=== PATIENT | male | born 1970 | race African-American/Black ===

== ENCOUNTER → 2020-02-03 | Outpatient (CLI) | payer BC ==
--- NOTE | 2020-02-03 13:50 | Diagnostic Imaging Report ---
Left knee MRI without contrast. History: Knee pain. Meniscus tear. Injury. Decreased range of motion. Swelling. Comparison: None. Technique: Multiplanar multi-sequence MRI of the knee without contrast. Findings: Medial compartment: Complex tear involving the posterior horn and body segments of the medial meniscus. Articular cartilage fraying and fissuring in the medial compartment. Mild underlying bone marrow edema at the medial femoral condyle and medial tibial plateau could be due to a bone contusion. No cortical fracture is seen. Peripheral marginal osteophytes. Mild sprain of the medial collateral ligament. The majority of the fibers are intact. Lateral compartment: No meniscal tear or cartilage abnormality. The LCL complex is normal. Intercondylar notch: The ACL and PCL are intact. Patellofemoral compartment: Articular cartilage fraying and fissuring in the patellofemoral compartment. Extensor mechanism: Chronic appearing scarring and degeneration of the patellar tendon with bone spurring at the inferior patellar bone. The quadriceps and patellar tendons are otherwise intact. Other findings: There is a moderate-sized joint effusion and synovitis. There is no acute fracture, subluxation or avascular necrosis. IMPRESSION: Complex medial meniscus tear and mild sprain of the medial collateral ligament. Bone marrow edema at the medial femoral condyle and medial tibial plateau could be due to a bone contusion. No cortical fracture is seen. Moderate size joint effusion and synovitis. Chronic appearing scarring and degeneration of the patellar tendon with bone spurring at the inferior patellar bone. Signed by: Dr. Jacob Bowman M.D. on 02/03/2020 1:46 PM
== END ==
LOC: MRI 12:50
PROVIDERS: ATTEND Specialist
DX: S83.222A Peripheral tear of medial meniscus, current injury, left knee, initial encounter (principal); S83.262A Peripheral tear of lateral meniscus, current injury, left knee, initial encounter

== ENCOUNTER → 2020-04-06 | Day surgery (SDC) | payer BC ==
[2020-04-01 11:59] LABS: BASOPHILS % 0.6 % (0.0-1.0); EOSINOPHILS # (AUTO) 0.3 (0.0-0.4); EOSINOPHILS % 5.5 % (0.0-6.0); HEMATOCRIT 47.4 % (38.2-49.6); HEMOGLOBIN 15.7 g/dL (14.0-18.0); LYMPHOCYTES # (AUTO) 2.5 (1.0-3.2); LYMPHOCYTES % 46.6 % (18.0-39.1); MEAN CORPUSCULAR HEMOGLOBIN 27.5 pg (28-32); MEAN CORPUSCULAR HGB CONC 33.1 g/dL (31-35); MEAN CORPUSCULAR VOLUME 83.2 fL (81-99); MONOCYTES # (AUTO) 0.4 (0.2-0.8); MONOCYTES % 7.9 % (4.4-11.3); NEUTROPHILS # (AUTO) 2.1 (2.1-6.9); NEUTROPHILS % 39.2 % (38.7-80.0); PLATELET COUNT 233 x10e3/uL (140-360)
--- NOTE | 2020-04-01 12:19 | Diagnostic Imaging Report ---
EXAMINATION: CHEST 2 VIEWS INDICATION: Pre-operative COMPARISON: None FINDINGS: LINES/TUBES:None LUNGS:The lungs are well-inflated. No focal consolidation or pulmonary edema. PLEURA:No pleural effusion or pneumothorax. MEDIASTINUM:The cardiomediastinal silhouette appears normal in size and shape. BONES/SOFT TISSUES:No acute osseous injury. ABDOMEN:No free air under the diaphragm. IMPRESSION: No focal pneumonia or pulmonary edema. Signed by: Sachi Smith MD on 04/01/2020 12:15 PM
[~2020-04-06] MED LIST: ASPIR 8181 MG PO; BUPIVACAINE 0.5%/EPI 30 ML SDV INJ ONE; CEFAZOLIN SOD 1 GM/NS 50ML 100 ML IV ONE; CLOPIDOGREL75 MG PO; CRESTOR10 MG PO; DEXAMETHASONE SOD PHOS INJ 4 MG/ML VIAL ONE; FENTANYL CITRATE/PF 100MCG/2 ML INJ ONE; GLYCOPYRROLATE INJ 0.2 MG/ML VIAL ONE; KETOROLAC TROMETHAMINE 30 MG/ML VIAL ONE; LIDOCAINE HCL 2% LOCAL INJ 5 ML SDV VIAL INJ ONE; MIDAZOLAM HCL 2 MG/2 ML VIAL ONE; ONDANSETRON HCL INJ 2MG/ML 2ML 2 MG/ML VIAL ONE; PROPOFOL IV EMULSION 10 MG/ML 20 ML VIAL ONE; SEVOFLURANE INHAL SOLN 250 ML PEN BTL ONE
--- OUTSIDE RECORDS SUMMARY | 2020-04-06 06:08 | XMS REPORT ---
Author Last Calderon Organization [employer] Address Unknown Phone Unavailable Care Team Providers Care [employer] Consultant Name Role Phone Eric Ferro CP Unavailable Allergies, Adverse Reactions, Alerts Substance Reaction Event Type N.K.D.A. 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 Medications Medication Code System Code Instructions Start Date End Date Status Dosage Tussionex Pennkinetic [place] [facility] [place] 08458546612 10-8 MG/5ML Oral ly every 12 hrs Jul 11, 2018 Jul 21, 2018 Active 5 ml as needed Omeprazole [facility] [place] 93309623869 40 MG Orally Once a day Jul 08, 2018 Active 1 capsule Aspirin [facility] [place] [address]-43 Active not define d Fenofibrate [facility] [place] [address]-48 Active not de fined Oxycodone HCl ND 77390174611 5 MG/5ML Orally every 6 hrs Jul 11, 2018 Jul 18, 2018 Active 10 ml as needed PredniSONE ND 07824438040 10 MG Orally Twi ce daily x 5 days then Once a day x 5 days Jul 11, 2018 Jul 21, 2018 Active 1 tablet Atorvastatin Calcium [facility] [place] [address]-40 Activ e not defined Plavix [facility] [place] [address]-46 Active not define d Results No Known Results Summary Purpose [employer] Submission
--- OUTSIDE RECORDS SUMMARY | 2020-04-06 06:08 | XMS REPORT ---
Author Last Calderon Organization [employer] Address Unknown Phone Unavailable Care Team Providers Care Grazing Examiner Name Role Phone Eric Ferro CP Unavailable Allergies, Adverse Reactions, Alerts Substance Reaction Event Type N.K.D.A. 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 Assessment Chronic laryngitis (LPRD) J37.0 Ac tive Medications Medication Code System Code Instructions Start Date End Date Status Dosage Plavix [facility] [address]-43 Active not define d Atorvastatin Calcium [facility] NAM[facility] [address]-03 Activ e not defined Fenofibrate [facility] NAMED [facility] [address]-24 Active not de fined Omeprazole [facility] NAMED [facility] 13343446074 40 MG Orally Once a day Jul 08, 2018 Active 1 capsule Aspirin [facility]AM[facility] [address]-80 Active not define d Results No Known Results Summary Purpose [employer] Submission
--- OUTSIDE RECORDS SUMMARY | 2020-04-06 06:08 | XMS REPORT ---
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 [address]-31 Active not define d PredniSONE [facility] 15447925742 10 MG Orally Twi ce daily x 5 days then Once a day x 5 days Jul 23, 2018 Aug 02, 2018 Active 1 tablet Tussionex Pennkinetic ER [facility] 05611287742 10-8 MG/5ML Oral ly every 12 hrs Jul 22, 2018 Aug 01, 2018 Active 5 ml as needed Oxycodone HCl [facility] 22605019870 5 MG/5ML Orally every 6 hrs Jul 22, 2018 Jul 27, 2018 Active 10 ml as needed Fenofibrate [facility] [address]-05 Active not de fined Atorvastatin Calcium [facility] [address]-92 Activ e not defined Plavix [facility] [address]-00 Active not define d Omeprazole [facility] 99625680522 40 MG Orally Once a day Jul 08, 2018 Active 1 capsule Results No Known Results Summary Purpose [employer] Submission
--- OUTSIDE RECORDS SUMMARY | 2020-04-06 06:08 | XMS REPORT | Summary of Care ---
Author Author KALEY STARKEY M.D. Organization Unknown Address [facility] Phone Unavailable Care Team Providers Care Ecommerce Marketing Manager Name Role Phone JAKY Chapa, LUIS Unavailable Unavailable JAKY VOGEL [place], LUIS W Unavailable Unavailable Unavailable Unavailable Functional Status Name Dates Details Functional status health issues are not documented Status: Name Dates Details Cognitive status health issues are not d ocumented Status: Problems Name Dates Details Other internal derangements of left knee (717.89, M23.8X2) Status: Active Medications Name Dates Details Indomethacin 25 MG Oral Capsule TAKE 1 CAPSULE 3 TIMES DAILY WITH FOOD. Quantity: 42 JAKY Chapa, WASYL * Start : 28-Nov-2018 End : 12-Dec-2018 Active Allergies and Adverse Reactions Name Dates Details Allergy history not documented Status: Procedures Procedure Dates Details Knee wo contrast 40646 Date: 28-Nov-2018 Immunization Name Dates Details Immunizations not documented Social History Name Dates Details Unknown if ever smoked Vital Signs Date Test Result Details No Known Vitals to report Results Date Description Value Details Results not documented Plan of Care Name Dates Details Planned Observations Knee wo contrast 54515 On: 28-Nov-2018 Intent Planned Goals not documented Interventions Provided Medication Changes* Indomethacin 25 MG Oral Capsule - Start Plan* I spent >30 minutes with Mr. CRAIG, >50% of that time regarding my impression and Rx plan * We discussed various treatment options, including MRI * MRI L knee * Rx Indocin * RTC after MRI Instructions Name Dates Details Instructions not documented Encounters Appointment; DANIELLE GILBERT M.D. Encounter Diagnosis: Problem not documented On: 29-Jan-2018 8:00 Appointment; LUIS STARKEY M.D. Encounter Diagnosis: Problem not documented On: 28-Nov-2018 15:00
--- OUTSIDE RECORDS SUMMARY | 2020-04-06 06:08 | XMS REPORT ---
Author Author [facility] Organization [facility] Address Unknown Phone Unavailable Care Team Providers Care Salesperson Flying [employer] Name Role Phone UNKNOWN, REFFERING PP Unavailable Dariana PRATT Unavailable Unavailable LUIS STARKEY M.D. Unavailable Unavailable Yajaira LÓPEZ Unavailable Unavailable TRISTIAN SILVA M.D. Unavailable Unavailable DANIELLE GILBERT M.D. 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 Ordering Clinician Indication Dosage Frequency Signature (SIG) Comments Components Indomethacin 25 MG Oral Capsule Indomethacin 25 MG Oral Caps ule 2018-11-28 00:00:00 2018-12-12 23:59:00 No LUIS STARKEY M.D. 1 Q 0.3333D TAKE 1 CAPSULE 3 TIMES DAILY WITH FOOD. Omeprazole Omeprazole 2018-07-08 00:00:00 Yes Eric Kasie 1 capsule Aspirin Aspirin Yes Eric Kasie not defin ed Fenofibrate Fenofibrate Yes Eric Kasie n ot defined Atorvastatin Calcium Atorvastatin Calcium Yes Eric Cord es not defined Plavix Plavix Yes Eric Kasie not defined Procedures and Interventions Procedure Date / Time Performed Performing Clinici an Knee wo contrast [id number] 2018-11-28 00:00:00 Plan of Care Planned Activity Planned Date Comments Encounters Start Date/Time End Date/Time Encounter Type Admission Type Attendi [facility] Care Department Encounter ID 2018-11-28 15:00:00 2018-11-28 15:00:00 Appointment; LUIS STARKEY M.D. FEDORIW, WASYL, M.D. [facility] [id number] 2018-08-13 09:00:00 2018-08-13 09:00:00 Outpatient [facility] [id number] 08:50:00 2018-07-23 08:50:00 Outpatient [facility] [id number] 10:50:00 2018-07-11 10:50:00 Outpatient [facility] P [id number] 14:40:00 2018-02-17 14:40:00 Outpatient C EVARISTO SILVA M.D. [facility] [id number] 2018-01-29 08:00:00 2018-01-29 08:00:00 Appointment; LOUIE GILBERT M.D. CUSICK, MICHAEL, M.D. [facility] [id number] Results Test Description Test Time Test Comments Text Results Atomic Results Result Comments CHEST 2 VIEWS 2020-04-01 12:15:00 [place] [address] Patient Name: KALEY CRAIG MR #: [id number] : 1970 Age/Sex: 49/M Req #: [id number] Adm Physician: Ordered by: ALEXEY PRATT MD Report #: [id number] Location: OR Room/Bed: Procedure: [id number] DX/CHEST 2 VIEWS Exam Date: 04/01/20 Exam Time: 1140 REPORT STATUS: Signed EXAMINATION: CHEST 2 VIEWS INDICATION: Pre-operative COMPARISON: None FINDINGS: LINES/TUBES:None LUNGS:The lungs are well-inflated. No focal consolidation or pulmonary edema. PLEURA:No pleural effusion or pneumothorax. MEDIAS TINUM:The cardiomediastinal silhouette appears normal in size and shape. BONES/SOFT TISSUES:No acute osseous injury. ABDOMEN:No free air under the diaphragm. IMPRESSION: No focal pneumonia or pulmonary edema. Signed by: Philip Vega MD on 04/01/2020 12:15 PM Dictated By: PHILIP VEGA MD 1215 Transcribed By: MARK on 04/01/20 1215 COPY TO: ALEXEY PRATT MD MRI KNEE LEFT WO 2020-02-03 13:38:00 [place] [address] Patient Name: KALEY CRAIG MR #: [id number] : 1970 Age/Sex: 49/M Req #: [id number] Adm Physician: Ordered by: ALEXEY PRATT MD Report #: [id number] Location: MRI Room/Bed: Procedure: [id number] MRI/MRI KNEE LEFT WO Exam Date: Exam Time: REPORT STATUS: Signed Left knee MRI without contrast. History: Knee pain. Meniscus tear. Injury. Decreased range of motion. Swelling. Comparison: None. Technique: Multiplanar multi-sequence MRI of the knee without contrast. Findings: Medial compartment: Complex tear involving the posterior horn and body segments of the medial meniscus. Articular cartilage fraying and fissuring in the medial compartment. Mild underlying bone marrow edema at the medial femoral condyle and medial tibial plateau could be due to a bone contusion. No cortical fracture is seen. Peripheral marginal osteophytes. Mild sprain of the medial collateral ligament. The majority of the fibers are intact. Lateral compartment: No meniscal tear or cartilage abnormality. The LCL complex is normal. Intercondylar notch: The ACL and PCL are intact. Patellofemoral compart ment: Articular cartilage fraying and fissuring in the patellofemoral compartment. Extensor mechanism: Chronic appearing scarring and degeneration of the patellar tendon with bone spurring at the inferior patellar bone. The quadriceps and patellar tendons are otherwise intact. Other findings: There is a moderate-sized joint effusion and synovitis. There is no acute fracture, subluxation or avascular necrosis. IMPRESSION: Complex medial meniscus tear and mild sprain of the medial collateral ligament. Bone marrow edema at the medial femoral condyle and medial tibial plateau could be due to a bone contusion. No cortical fracture is seen. Moderate size joint effusion and synovitis. Chronic appearing scarring and degeneration of the patellar tendon with bone spurring at the inferior patellar bone. Signed by: Dr. Caleb Bowman M.D. on 02/03/2020 1:46 PM Dictated By: CALEB BOWMAN MD, MD 1346 Transcribed By: MARK on 02/03/20 1346 COPY TO: ALEXEY PRATT MD CBC W/MANUAL DIFF 2019-11-25 06:12:00 WHITE BLOOD CELL (test code = WBC) 2.5 x10 3/uL 5.0-12.0 RED BLOOD CELL (test code = RBC) 5.04 x10 6/uL 4.70-6.10 HEMOGLOBIN (test code = HGB) 13.9 g/dL 14.0-18.0 HEMATOCRIT (test code = HCT) 42.6 % 37.0-49.0 MEAN CELL VOLUME (test code = MCV) 85 fL 80-94 MEAN CELL HGB (test code = MCH) 27.6 pg 27-31 MEAN CELL HGB CONCENTRATION (test code = MCHC) 32.6 g/dL 3 3-37 RED CELL DISTRIBUTION WIDTH (test code = RDW) 13.9 % 11 .5-15.5 PLATELET COUNT (test code = PLT) 161 x10 3/uL 130-400 MEAN PLATELET VOLUME (test code = MPV) 9.8 fL 9.4-16.4 TOTAL CELLS COUNTED (test code = TCC) 100 #CELLS SEGMENTED NEUTROPHILS (test code = SEG) 40 % 43-65 BAND NEUTROPHIL (test code = BAND) 14 % 0-1 LYMPHOCYTE (test code = LYMPH) 38 % 20.5-45.5 ATYPICAL LYMPH (test code = ALYMPH) 3 % 0-1 MONOCYTE (test code = MON) 7 % 5.5-11.7 POLYCHROMASIA (test code = POLC) 1+ NONE SEEN TARGET CELLS (test code = TGT) 1+ NONE SEEN TEAR DROP CELLS (test code = TEAR) 1+ NONE SEEN PLATELET ESTIMATE (test code = PLTEST) ADEQUATE ADEQUATE PLATELET MORPHOLOGY (test code = PLTMORPH) NORMAL TONIA L BASIC METABOLIC [id number] 05:53:00* Test Item Value Reference Range Comments SODIUM (test code = NA) 133 mmol/L 137-145 POTASSIUM (test code = K) 3.9 mmol/L 3.4-5.0 CHLORIDE (test code = CL) 104 mmol/L 98-107 CARBON DIOXIDE (test code = CO2) 23 mmol/L 22-30 GLUCOSE (test code = GLU) 96 mg/dL 74-106 BLOOD UREA NITROGEN (test code = BUN) 16 mg/dL 9-20 GLOMERULAR FILTRATION RATE (test code = GFR) 75 >60 The estimated glomerular filtration rate is computed usingpatient race, age (>18), sex, and serum creatinine. If anyof the needed data elements are missing the Laboratory cannot compute an estimation of the glomerular filtration rate. CREATININE (test code = CREAT) 1.1 mg/dL 0.7-1.3 CALCIUM (test code = CA) 7.5 mg/dL 8.4-10.2 [id number] 05:53:00* Test Item Value Reference Range Comments MAGNESIUM (test code = MAG) 1.8 mg/dL 1.6-2.3 CBC W/MANUAL [id number] 05:33:00* Test Item Value Reference Range Comments WHITE BLOOD CELL (test code = WBC) 2.5 x10 3/uL 5.0-12.0 RED BLOOD CELL (test code = RBC) 5.04 x10 6/uL 4.70-6.10 HEMOGLOBIN (test code = HGB) 13.9 g/dL 14.0-18.0 HEMATOCRIT (test code = HCT) 42.6 % 37.0-49.0 MEAN CELL VOLUME (test code = MCV) 85 fL 80-94 MEAN CELL HGB (test code = MCH) 27.6 pg 27-31 MEAN CELL HGB CONCENTRATION (test code = MCHC) 32.6 g/dL 3 3-37 RED CELL DISTRIBUTION WIDTH (test code = RDW) 13.9 % 11 .5-15.5 PLATELET COUNT (test code = PLT) 161 x10 3/uL 130-400 MEAN PLATELET VOLUME (test code = MPV) 9.8 fL 9.4-16.4 TOTAL CELLS COUNTED (test code = TCC) #CELLS SEGMENTED NEUTROPHILS (test code = SEG) % 43-65 LYMPHOCYTE (test code = LYMPH) % 20.5-45.5 CBC W/MANUAL [id number] 05:33:00* Test Item Value Reference Range Comments WHITE BLOOD CELL (test code = WBC) 2.5 x10 3/uL 5.0-12.0 RED BLOOD CELL (test code = RBC) 5.04 x10 6/uL 4.70-6.10 HEMOGLOBIN (test code = HGB) 13.9 g/dL 14.0-18.0 HEMATOCRIT (test code = HCT) 42.6 % 37.0-49.0 MEAN CELL VOLUME (test code = MCV) 85 fL 80-94 MEAN CELL HGB (test code = MCH) 27.6 pg 27-31 MEAN CELL HGB CONCENTRATION (test code = MCHC) 32.6 g/dL 3 3-37 RED CELL DISTRIBUTION WIDTH (test code = RDW) 13.9 % 11 .5-15.5 PLATELET COUNT (test code = PLT) 161 x10 3/uL 130-400 MEAN PLATELET VOLUME (test code = MPV) 9.8 fL 9.4-16.4 TOTAL CELLS COUNTED (test code = TCC) #CELLS SEGMENTED NEUTROPHILS (test code = SEG) % 43-65 LYMPHOCYTE (test code = LYMPH) % 20.5-45.5 CARDIAC ENZYMES [id number] 19:23:00* Test Item Value Reference Range Comments TROPONIN-I (test code = TROPI) 0.014 ng/mL 0.012-0.033 Please be advised of the updated reference ranges for the new Chemistry instrumentation. VITROS TROPONIN I CRITERIANORMAL PATIENT W/O CIRCULATING TNI: 0.012-0.033 ng/mLCIRCULATING TNI PRESENT: 0.034-0.119 ng/mL(MAY BE AT RISK OF AMI)AMI DIAGNOSTIC CUTOFF: >/= 0.120 ng/mL~~~~~~~~~~~~~~~~~~~~~~~~~~~~~~~~~~~~~~~~~~~~~~~~~~~~~~~~~~~The use of serial sampling and testing protocol is arecommended practice.An elevated troponin level alone is often not sufficient fordiagnosis of myocardial infarction. Troponin results obtained by different assays may vary.Evaluation of the extent of myocardial damage based onincrease of troponin would be valid only if similarmethodology is used.~~~~~~~~~~~~~~~~~~~~~~~~~~~~~~~~~~~~~~~~~~~~~~~~~~~~~~~~~~~ CARDIAC ENZYMES [id number] 18:44:00* Test Item Value Reference Range Comments TROPONIN-I (test code = TROPI) 0.015 ng/mL 0.012-0.033 Please be advised of the updated reference ranges for the new Chemistry instrumentation. VITROS TROPONIN I CRITERIANORMAL PATIENT W/O CIRCULATING TNI: 0.012-0.033 ng/mLCIRCULATING TNI PRESENT: 0.034-0.119 ng/mL(MAY BE AT RISK OF AMI)AMI DIAGNOSTIC CUTOFF: >/= 0.120 ng/mL~~~~~~~~~~~~~~~~~~~~~~~~~~~~~~~~~~~~~~~~~~~~~~~~~~~~~~~~~~~The use of serial sampling and testing protocol is arecommended practice.An elevated troponin level alone is often not sufficient fordiagnosis of myocardial infarction. Troponin results obtained by different assays may vary.Evaluation of the extent of myocardial damage based onincrease of troponin would be valid only if similarmethodology is used.~~~~~~~~~~~~~~~~~~~~~~~~~~~~~~~~~~~~~~~~~~~~~~~~~~~~~~~~~~~ PROCALCITONIN (PCT)2019-11-24 15:04:00* Test Item Value Reference Range Comments PROCALCITONIN (PCT) (test code = PROCAL) 0.71 NG/ML (PCT) Normal Value: <0.05 NG/ML <0.5 NG/ML - low risk of severe sepsis and/or septic shock>2.0 NG/ML - high risk of severe sepsis and/or septic shock PCT concentrations between 0.5 and 2.0 NG/ML should beinterpreted taking into account the patient's history.It is recommended to retest PCT within 6-24 hours if anyconcentrations between 0.5-2.0 NG/ML are obtained. - CT ANGIO [id number] 14:42:00 FAX: Sharon Gusman MD [phone] [place]: St: ADM Name: KALEY MORILLO [facility] : 8 Age/S: 49/M [address] Unit: [id number] Loc: [address] [address] Phys: Sharon Rodriguez MD Acct: [id number] Dis Date: Status: ADM IN PHONE #: [phone] Exam Date: 11/24/2019 1440 FAX #: [phone] Reason: PE TACHYCARDIA CHEST PAIN EXAMS: CPT CODE: [id number] CT ANGIO CHEST [address] WITH CONTRAST, PE PROTOCOL. CLINICAL HISTORY: PE TACHYCARDIA CHEST PAIN TECHNIQUE: Helical CT the chest was performed following the administrat ion of 100 mL Isovue-370 intravenous contrast. Coronal, sagittal, and axi al MIP reformatted images were submitted. One or more of the following do se reduction techniques were used: Automated exposure control, adjustment of the mA and/or kV according to patient size, and/or utilization of itera tive reconstruction technique. FINDINGS: Diagnosti c quality: Adequate Pulmonary embolism: None. Right heart strain: No CT evidence of right heart strain. Pulmonary christy brandt: Normal in caliber Lung parenchyma: Patchy alveolar opacities are seen throughout to the left lower lobe. A few tiny ill-defined opaci ties are also noted in the left lingula and the superior segment of the ri ght lower lobe. Pleura: No pleural effusion or pneumothorax. Central airways: Normal. Adenopathy: None. Heart and great vessels: The heart is mildly enlarged. A stent is seen in the left circumflex artery. Coronary artery calcifications are present. Upper abdomen: Limited views are unremarkable. Bones: Normal. IMPRESSION: 1. No pulmonary embolism. PAGE 1 Signed Report (CONTINUED) FAX: Sharon Gusman MD [phone] [place]: St: A DM - Name: KALEY CRAIG [facility] B: 1970 Age/S: 49/M [address] Unit: [id number] Loc: [address] [address] Phys: Sharon Rodriguez MD Acct: [id number] Dis Date: Status: ADM IN PHONE #: [phone] Exam Date: 11/24/2019 1440 FAX #: [phone] Reason: PE TACHYCARDIA CHEST PAIN EXAMS: CPT CODE: [id number] [facility] [address] <Continued> 2. Multifocal pneumonia, most pronounced in the left lower lobe. 3. Mild cardiomegaly and coronary artery disease. LOCATION: R16 at 1442 Reported and signed by: Dio Shi MD CC: Sharon Rodriguez MD Technologist: DMITRIY MARTÍNEZ, RT(R,CT); [facility] Trn[facility] Dt/Tm: 11/24/2019 (1442) [email or web address] Orig Print D/T: S: 11/24/2019 (5633 PAGE 2 Signed Report LIPID PROFILE (CORONARY RISK) 2019-11-24 14:14:00* Test Item Value Reference Range Comments TRIGLYCERIDES (test code = TRIG) 338 mg/dL TRIGLYCERIDES REFERENCE RANGE:Normal: <150 mg/dLBorderline High: 150-199 mg/dLHigh: 200-499 mg/dLVery High: >=500 mg/dL CHOLESTEROL (test code = CHOL) 226 mg/dL C HOLESTEROL REFERENCE RANGE:DESIRABLE: < 200 mg/dLBORDERLINE: 200-239 mg/dLHIGH: >=240 mg/dL HDL CHOLESTEROL (test code = HDL) 22 mg/dL 40-59 LIPOPROTEIN LDL (test code = LDLC) 140.43 mg/dL 32-99 CORONARY RISK FACTOR (test code = RISK) 10.27 CHOL/HDL RISK MALE: 1/2 AVG 3.43 FEMALE: 1/2 AVG 3.27 AVG 4.97 AVG 4.44 2X AVG 9.55 2X AVG 7.05 3X AVG 23.39 3X AVG 11.04~~~~~~~~~~~~~~~~~~~~~~~~~~~~~~~~~~~~~~~~~~~~~~~~~~~~~~~~~~~~National Cholesterol Education (NCEP) Guidelines:~~~~~~~~~~~~~~~~~~~~~~~~~~~~~~~~~~~~~~~~~~~~~~~~~~~~~~~~~~~~ HDL Cholesterol<40mg/dL: HDL Cholesterol (Major risk factor for CHD)>60mg/dL: HDL Cholesterol (Negative risk factor for CHD)40-59mg/dL: Borderline Risk LDL Cholesterol<100mg/dL: Desirable LDL-C jtmkplqvajmjb129-796pp/dL: Borderline High Risk LDL-C akvctfgbxiieo370-702ch/dL: High risk LDL-C concentration HDL-LDL Cholesterol is affected by a number of factors suchas smoking, age and sex.~~~~~~~~~~~~~~~~~~~~~~~~~~~~~~~~~~~~~~~~~~~~~~~~~~~~~~~~~~~~ [id number] 14:14:00* Test Item Value Reference Range Comments MAGNESIUM (test code = MAG) 1.8 mg/dL 1.6-2.3 LIPID PROFILE (CORONARY RISK)2019-11-24 14:04:00* Test Item Value Reference Range Comments TRIGLYCERIDES (test code = TRIG) 338 mg/dL TRIGLYCERIDES REFERENCE RANGE:Normal: <150 mg/dLBorderline High: 150-199 mg/dLHigh: 200-499 mg/dLVery High: >=500 mg/dL CHOLESTEROL (test code = CHOL) 226 mg/dL C HOLESTEROL REFERENCE RANGE:DESIRABLE: < 200 mg/dLBORDERLINE: 200-239 mg/dLHIGH: >=240 mg/dL HDL CHOLESTEROL (test code = HDL) 22 mg/dL 40-59 LIPOPROTEIN LDL (test code = LDLC) MG/DL 0-99 CORONARY RISK FACTOR (test code = RISK) 10.27 CHOL/HDL RISK MALE: 1/2 AVG 3.43 FEMALE: 1/2 AVG 3.27 AVG 4.97 AVG 4.44 2X AVG 9.55 2X AVG 7.05 3X AVG 23.39 3X AVG 11.04~~~~~~~~~~~~~~~~~~~~~~~~~~~~~~~~~~~~~~~~~~~~~~~~~~~~~~~~~~~~National Cholesterol Education (NCEP) Guidelines:~~~~~~~~~~~~~~~~~~~~~~~~~~~~~~~~~~~~~~~~~~~~~~~~~~~~~~~~~~~~ HDL Cholesterol<40mg/dL: HDL Cholesterol (Major risk factor for CHD)>60mg/dL: HDL Cholesterol (Negative risk factor for CHD)40-59mg/dL: Borderline Risk LDL Cholesterol<100mg/dL: Desirable LDL-C ijgweumjajwpo680-342jq/dL: Borderline High Risk LDL-C xstxxkknixdrj385-711fm/dL: High risk LDL-C concentration HDL-LDL Cholesterol is affected by a number of factors suchas smoking, age and sex.~~~~~~~~~~~~~~~~~~~~~~~~~~~~~~~~~~~~~~~~~~~~~~~~~~~~~~~~~~~~ [id number] 14:04:00* Test Item Value Reference Range Comments MAGNESIUM (test code = MAG) 1.8 mg/dL 1.6-2.3 CBC W/MANUAL [id number] 10:19:00* Test Item Value Reference Range Comments WHITE BLOOD CELL (test code = WBC) 2.0 x10 3/uL 5.0-12.0 RED BLOOD CELL (test code = RBC) 6.06 x10 6/uL 4.70-6.10 HEMOGLOBIN (test code = HGB) 16.8 g/dL 14.0-18.0 HEMATOCRIT (test code = HCT) 50.5 % 37.0-49.0 MEAN CELL VOLUME (test code = MCV) 83 fL 80-94 MEAN CELL HGB (test code = MCH) 27.7 pg 27-31 MEAN CELL HGB CONCENTRATION (test code = MCHC) 33.3 g/dL 3 3-37 RED CELL DISTRIBUTION WIDTH (test code = RDW) 13.6 % 11 .5-15.5 PLATELET COUNT (test code = PLT) 176 x10 3/uL 130-400 MEAN PLATELET VOLUME (test code = MPV) 9.6 fL 9.4-16.4 TOTAL CELLS COUNTED (test code = TCC) 100 #CELLS SEGMENTED NEUTROPHILS (test code = SEG) 28 % 43-65 BAND NEUTROPHIL (test code = BAND) 3 % 0-1 LYMPHOCYTE (test code = LYMPH) 64 % 20.5-45.5 ATYPICAL LYMPH (test code = ALYMPH) 3 % 0-1 MONOCYTE (test code = MON) 2 % 5.5-11.7 RBC MORPHOLOGY COMMENT (test code = MOC) Normal NORMAL PLATELET ESTIMATE (test code = PLTEST) ADEQUATE ADEQUATE PLATELET MORPHOLOGY (test code = PLTMORPH) NORMAL TONIA L [id number] 10:05:00* Test Item Value Reference Range Comments D-DIMER (test code = DDIMER) 1034 ng/mLFEU 0-500 Cri tical Value reported toFirst Name:DR ARIAS Last Name:RESULTS READ BACK AND VERIFIEDby C.LAB.CTD, on 11/24/19, @ 4379.THE DDIMER METHOD IS USED IN THE EXCLUSION OF DEEP VEINTHROMBOSIS AND/OR PULMONARY EMBOLISM AND THE CLINICAL CUT-OFF VALUE FOR EXCLUSION (500 NG/ML FEU) OF THESE CONDITIONSIS VALIDATED BY THE TREE SURGEON HELPER OF THE METHOD. A NEGATIVE DDIMER RESULT WHEN COMBINED WITH A CLINICALASSESSMENT OF LOW PRETEST PROBABILITY HAS BEEN SHOWN TO HAVEA HIGH NEGATIVE PREDICTIVE VALUE OF DVT OR PE. D-DIMER VALUES >500 ng/mL ARE NOT DIAGNOSTIC FOR DVT,PEOR DIC WITHOUT OTHER CONFIRMATORY TESTS AND APPROPRIATECLINICAL EVALUATIONS. UA RFLX MICR CULT IF [id number] 10:05:00* Test Item Value Reference Range Comments UA COLOR (test code = COLU) YELLOW YELLOW UA APPEARANCE (test code = APPU) CLEAR CLEAR UA GLUCOSE DIPSTICK (test code = DGLUU) NEGATIVE MG/DL NEGATIVE UA BILIRUBIN DIPSTICK (test code = BILU) NEGATIVE NEGATIV E UA KETONE DIPSTICK (test code = KETU) NEGATIVE MG/DL NEGATIVE UA SPECIFIC GRAVITY (test code = SGU) 1.025 1.000-1.03 0 UA BLOOD DIPSTICK (test code = SID) NEGATIVE NEGATIVE UA PH DIPSTICK (test code = ALLISON) 6.0 5.0-8.0 UA PROTEIN DIPSTICK (test code = PROU) 30 (1+) MG/DL NEGATIVE UA UROBILINOGEN DIPSTICK (test code = URO) 1.0 EU/dL <=1.0 UA NITRITE DIPSTICK (test code = FERNANDO) NEGATIVE NEGATIVE UA LEUKOCYTE ESTERASE DIPSTICK (test code = LEUU) NEGATIVE NEGATIVE UA WBC (test code = WBCUR) 3-5 /HPF 0-3 UA RBC (test code = RBCU) 0-3 /HPF 0-3 UA EPITHELIAL CELLS (test code = EPIU) FEW /LPF NONE-FEW UA BACTERIA (test code = BACU) 1+ /HPF NEGATIVE UA CRYSTALS OTHER (test code = CRYU) NONE SEEN /HPF NEGATIVE UA HYALINE CAST (test code = HYALU) 0-3 /LPF NONE SEEN UA WHITE BLOOD CELL CAST (test code = WBCCU) 0-3 /LPF NON E SEEN SOURCE OF URINE: CLEAN CATCHIndication for culture: Suprapubic Pain COMPREHENSIVE METABOLIC [id number] 10:02:00* Test Item Value Reference Range Comments SODIUM (test code = NA) 134 MMOL/L 135-147 POTASSIUM (test code = K) 4.0 MMOL/L 3.6-5.2 CHLORIDE (test code = CL) 97 MMOL/L 98-108 CARBON DIOXIDE (test code = CO2) 25 mmol/L 21-32 GLUCOSE (test code = GLU) 106 mg/dL 70-110 BLOOD UREA NITROGEN (test code = BUN) 20 MG/DL 6-21 GLOMERULAR FILTRATION RATE (test code = GFR) 68 >60 The estimated glomerular filtration rate is computed usingpatient race, age (>18), sex, and serum creatinine. If anyof the needed data elements are missing the Laboratory cannot compute an estimation of the glomerular filtration rate. CREATININE (test code = CREAT) 1.2 mg/dL 0.6-1.3 TOTAL PROTEIN (test code = PROT) 7.6 g/dL 6.0-8.2 ALBUMIN (test code = ALB) 3.0 G/DL 3.7-5.5 CALCIUM (test code = CA) 8.3 mg/dL 8.7-10.5 BILIRUBIN TOTAL (test code = BILT) 0.40 mg/dL 0.0-1.0 SGOT/AST (test code = AST) 323 UNITS/L 10-37 SGPT/ALT (test code = ALT) 411 UNITS/L 12-78 ALKALINE PHOSPHATASE (test code = ALKP) 90 UNITS/L 46-116 TROPONIN I [id number] 09:58:00* Test Item Value Reference Range Comments TROPONIN I RAPID (test code = TROPIRAP) 0.06 ng/mL 0.00-0.0 79 Performed at [facility] by certified c d still operator ISTAT TROPONIN I CRITERIA0.00-0.08 ng/mL - Negative>0.08 ng/mL - Positive The use of serial sampling and testing protocol is arecommended practice.An elevated troponin level alone is often not sufficient fordiagnosis of myocardial infarction. Troponin results obtained by different assays may vary.Evaluation of the extent of myocardial damage based onincrease of troponin would be valid only if similarmethodology is used. COMPREHENSIVE METABOLIC [id number] 09:57:00* Test Item Value Reference Range Comments SODIUM (test code = NA) 134 MMOL/L 135-147 POTASSIUM (test code = K) 4.0 MMOL/L 3.6-5.2 CHLORIDE (test code = CL) 97 MMOL/L 98-108 CARBON DIOXIDE (test code = CO2) 25 mmol/L 21-32 GLUCOSE (test code = GLU) 106 mg/dL 70-110 BLOOD UREA NITROGEN (test code = BUN) 20 MG/DL 6-21 GLOMERULAR FILTRATION RATE (test code = GFR) 68 >60 The estimated glomerular filtration rate is computed usingpatient race, age (>18), sex, and serum creatinine. If anyof the needed data elements are missing the Laboratory cannot compute an estimation of the glomerular filtration rate. CREATININE (test code = CREAT) 1.2 mg/dL 0.6-1.3 TOTAL PROTEIN (test code = PROT) g/dL 6.0-8.2 ALBUMIN (test code = ALB) G/DL 3.7-5.5 CALCIUM (test code = CA) 8.3 mg/dL 8.7-10.5 BILIRUBIN TOTAL (test code = BILT) mg/dL 0.0-1.0 SGOT/AST (test code = AST) UNITS/L 10-37 SGPT/ALT (test code = ALT) UNITS/L 12-78 ALKALINE PHOSPHATASE (test code = ALKP) UNITS/L 46-116 UA RFLX MICR CULT IF [id number] 09:53:00* Test Item Value Reference Range Comments UA COLOR (test code = COLU) YELLOW YELLOW UA APPEARANCE (test code = APPU) CLEAR CLEAR UA GLUCOSE DIPSTICK (test code = DGLUU) NEGATIVE MG/DL NEGATIVE UA BILIRUBIN DIPSTICK (test code = BILU) NEGATIVE NEGATIV E UA KETONE DIPSTICK (test code = KETU) NEGATIVE MG/DL NEGATIVE UA SPECIFIC GRAVITY (test code = SGU) 1.025 1.000-1.03 0 UA BLOOD DIPSTICK (test code = SID) NEGATIVE NEGATIVE UA PH DIPSTICK (test code = ALLISON) 6.0 5.0-8.0 UA PROTEIN DIPSTICK (test code = PROU) 30 (1+) MG/DL NEGATIVE UA UROBILINOGEN DIPSTICK (test code = URO) 1.0 EU/dL <=1.0 UA NITRITE DIPSTICK (test code = FERNANDO) NEGATIVE NEGATIVE UA LEUKOCYTE ESTERASE DIPSTICK (test code = LEUU) NEGATIVE NEGATIVE UA WBC (test code = WBCUR) /HPF 0-3 UA RBC (test code = RBCU) /HPF 0-3 UA EPITHELIAL CELLS (test code = EPIU) /LPF NONE-FEW UA BACTERIA (test code = BACU) /HPF NEGATIVE SOURCE OF URINE: CLEAN CATCHIndication for culture: Suprapubic PainCBC W/MANUAL [id number] 09:53:00* Test Item Value Reference Range Comments WHITE BLOOD CELL (test code = WBC) 2.0 x10 3/uL 5.0-12.0 RED BLOOD CELL (test code = RBC) 6.06 x10 6/uL 4.70-6.10 HEMOGLOBIN (test code = HGB) 16.8 g/dL 14.0-18.0 HEMATOCRIT (test code = HCT) 50.5 % 37.0-49.0 MEAN CELL VOLUME (test code = MCV) 83 fL 80-94 MEAN CELL HGB (test code = MCH) 27.7 pg 27-31 MEAN CELL HGB CONCENTRATION (test code = MCHC) 33.3 g/dL 3 3-37 RED CELL DISTRIBUTION WIDTH (test code = RDW) 13.6 % 11 .5-15.5 PLATELET COUNT (test code = PLT) 176 x10 3/uL 130-400 MEAN PLATELET VOLUME (test code = MPV) 9.6 fL 9.4-16.4 TOTAL CELLS COUNTED (test code = TCC) #CELLS SEGMENTED NEUTROPHILS (test code = SEG) % 43-65 LYMPHOCYTE (test code = LYMPH) % 20.5-45.5 CBC W/MANUAL [id number] 09:53:00* Test Item Value Reference Range Comments WHITE BLOOD CELL (test code = WBC) 2.0 x10 3/uL 5.0-12.0 RED BLOOD CELL (test code = RBC) 6.06 x10 6/uL 4.70-6.10 HEMOGLOBIN (test code = HGB) 16.8 g/dL 14.0-18.0 HEMATOCRIT (test code = HCT) 50.5 % 37.0-49.0 MEAN CELL VOLUME (test code = MCV) 83 fL 80-94 MEAN CELL HGB (test code = MCH) 27.7 pg 27-31 MEAN CELL HGB CONCENTRATION (test code = MCHC) 33.3 g/dL 3 3-37 RED CELL DISTRIBUTION WIDTH (test code = RDW) 13.6 % 11 .5-15.5 PLATELET COUNT (test code = PLT) 176 x10 3/uL 130-400 MEAN PLATELET VOLUME (test code = MPV) 9.6 fL 9.4-16.4 TOTAL CELLS COUNTED (test code = TCC) #CELLS SEGMENTED NEUTROPHILS (test code = SEG) % 43-65 LYMPHOCYTE (test code = LYMPH) % 20.5-45.5 LACTIC ACID [id number] 09:51:00* Test Item Value Reference Range Comments LACTIC ACID POC (test code = LACTP) 1.02 mmol/L 0.7-2.0 Performed at [place] [facility] by certified c d still operator - XR CHEST 2 [id number] 09:08:00 FAX: Maryan Bruce MD [phone] [place]: St: PRE Name: KALEY PRADO [place] : [birth year] Age/S: 49/M [address] [facility] Unit #: [id number] Loc: [place] [address] Phys: Maryan Arias MD Acct: [id number] Dis Date: Status: PRE ER PHONE #: Exam Date: 11/24/2019 0905 FAX #: Reason: cough EXAMS: CPT CODE: [id number] XR CHEST 2 V 16743 C3 TIME OF STUDY: 1 01/25/2019 8:53 AM REASON FOR EXAM: cough CO MPARISON: None FINDINGS: PA and lateral upright views of the [facility] st were obtained. Lungs: There are patchy retrocardiac airspace o pacity seen in the left lower lobe. Pleura: No pleur al effusion or pneumothorax. Heart and Mediastinum: Normal cardio mediastinal silhouette and great vessels. Bones: Normal luis eduardo onal skeletal structures. IMPRESSION: 1. Findi ngs concerning for developing left lower lobe pneumonia. Electronica lly Signed by Mikal Mloina MD on 11/24/2019 at 0908 Report ed and signed by: Mikal Molina MD CC: Maryan Arias MD Technologist: MAGI CAREY RT(R,CT) PAGE 1 Signed Report FAX: Y Maryan Arias MD [phone] [place]: St: PRE ---- Name: KALEY CRAIG : 1970 Age/S: 49/M [address] [facility] Unit #: [id number] Loc: [place] [address] Phys: Maryan Arias MD Acct: [id number] Dis Date: Status: PRE ER PHONE # : Exam Date: 11/24/2019 0905 FAX #: Reason: cough EXAMS: CPT CODE: [id number] XR CHEST 2 V 76556 <Continued> Trnscrd Date/Time/By: 11/24/2019 (0908) : By: [email or web address] PAGE 2 Signed Report TISSUE [id number] 15:53:00Surgical Pathology Report Case: [id number] Authorizing Provider: Eric López MD Collected: 07/17/2018 1501 Ordering Location: [facility] Received: 07/18/2018 1152 SERVICES Pathologist: Rae Araujo MD Specimen: Vocal Cord, left vocal cord polyp LEFT VOCAL CORD, BIOPSY: - VOCAL CORD POLYP/LARYNGEAL POLYP Signing Pathologist Direct Phone Line: [phone] signed by Rae Araujo MD on 07/21/2018 at 3:53 PMMO/[id number] g7Vxata of larynxLeft vocal cord polypReceived in formalin labeled "vocal cord", description "left vocal cord polyp", are multiple fragments measuring 2.0 x 1.5 x 0.1 cm in aggregate. Entirely submitted A1. DB/plThe designated vocal cord polyp shows features typical of that lesion. There is squamous mucosa, somewhat attenuated over a myxoid and paucicellular subepithelial element. There is no atypia, nor are there other significant features.[id number] 15:21:00* Test Item Value Reference Range Comments SODIUM (BEAKER) (test code = 381) 141 meq/L 136-145 POTASSIUM (BEAKER) (test code = 379) 4.1 meq/L 3.5-5.1 CHLORIDE (BEAKER) (test code = 382) 107 meq/L 98-107 CO2 (BEAKER) (test code = 355) 25 meq/L 22-29 BUN AND [id number] 15:21:00* Test Item Value Reference Range Comments BLOOD UREA NITROGEN (BEAKER) (test code = 354) 15 mg/dL 7 -21 CREATININE (BEAKER) (test code = 358) 1.27 mg/dL 0.57-1.25 EGFR (BEAKER) (test code = 1092) 73 mL/min/1.73 sq m ESTIMATED GFR IS NOT ACCURATE CREATININE CLEARANCE IN PREDICTING GLOMERULAR FILTRATION RATE. ESTIMATED GFR IS NOT APPLICABLE FOR DIALYSIS PATIENTS. [id number] 15:05:00* Test Item Value Reference Range Comments HEMOGLOBIN (BEAKER) (test code = 410) 15.1 GM/DL 13.7-17.5
[2020-04-06 10:30] VITALS: BP 103/76
--- NOTE | 2020-04-13 23:41 | Operative Report ---
DATE OF PROCEDURE: 04/06/2020 SURGEON: Mark Stewart MD PREOPERATIVE DIAGNOSES: 1. Left knee medial meniscal tear. 2. Left knee degenerative joint disease. POSTOPERATIVE DIAGNOSES: 1. Left knee medial meniscal tear. 2. Left knee degenerative joint disease. OPERATION AND PROCEDURE PERFORMED: The patient underwent left knee exam under anesthesia, left knee arthroscopy, left knee partial medial meniscectomy, left knee chondroplasty of the patella, the trochlea, the medial femoral condyle, the medial tibial plateau, the lateral femoral condyle and lateral tibial plateau. SAND MILLER: There was no assistant secretary. ANESTHESIA: General endotracheal intubation anesthesia. IV FLUIDS: Per the anesthesia record. BLOOD LOSS: Minimal. COMPLICATIONS: None. BRIEF DESCRIPTION OF THE PATIENT'S OPERATIVE PROCEDURE: Mr. Garcia was taken to the operating room and placed in the supine position on the operating table. Following induction of general anesthesia as well as endotracheal intubation, the patient's left lower extremity was examined under anesthesia. He was noted to have a mild effusion within the knee joint, but otherwise ligamentously stable knee. The patient's lower extremity was prepped and draped in standard surgical fashion. A two-port technique was performed to provide the patient left knee arthroscopy. The scope was placed within the knee joint atraumatically. Examination of the patellofemoral joint demonstrated chondromalacia of the articulating surfaces. The scope was then advanced to the medial and lateral gutters and no loose bodies were discovered. The scope was advanced to the medial compartment. Examination of the medial compartment demonstrated a torn medial meniscus. There was also chondromalacia of the articulating surfaces. A combination of biting forceps and a motorized shaver was used to resect the torn portion of meniscus. Chondroplasties of the medial femoral condyle and medial tibial plateau were performed at this time. The scope was then advanced to the intercondylar notch, and the anterior cruciate ligament was identified and found to be intact. The scope was then advanced to the lateral compartment and there was chondromalacia of the articulating surfaces. Chondroplasties of the lateral femoral condyle and lateral tibial plateau were performed at this time. The scope was then advanced in suprapatellar pouch and chondroplasties of the patella and trochlea were performed. The knee was then deflated with sterile normal saline. Each of the portal sites were closed using 4-0 nylon suture. The portal sites as well as knee itself were injected with 0.5% Marcaine with epinephrine. Sterile dressings were applied and the patient was then awakened and taken to postanesthesia care unit in stable condition. MD RICKY Berger/JOSE ROBERTO /[id number]
== END | disposition home or self-care (01) ==
LOC: OR 06:06
PROVIDERS: ATTEND Specialist
DX: S83.222A Peripheral tear of medial meniscus, current injury, left knee, initial encounter (principal); S83.262A Peripheral tear of lateral meniscus, current injury, left knee, initial encounter; M17.12 Unilateral primary osteoarthritis, left knee; M22.42 Chondromalacia patellae, left knee; I25.10 Atherosclerotic heart disease of native coronary artery without angina pectoris; I25.2 Old myocardial infarction; X58.XXXA Exposure to other specified factors, initial encounter; Z79.02 Long term (current) use of antithrombotics/antiplatelets; Z79.82 Long term (current) use of aspirin; Z95.5 Presence of coronary angioplasty implant and graft; Z68.31 Body mass index [BMI] 31.0-31.9, adult; Z87.891 Personal history of nicotine dependence
CPT/HCPCS: 29881; 36415; 71046; 85025; 87635; 93005; J0690; J1100; J1885; J2001; J2250; J2405; J2704; J3010

== ENCOUNTER → 2022-02-01 | Outpatient (CLI) | payer OTHER ==
[~2022-02-01] MED LIST changes: -BUPIVACAINE 0.5%/EPI 30 ML SDV INJ ONE; -CEFAZOLIN SOD 1 GM/NS 50ML 100 ML IV ONE; -DEXAMETHASONE SOD PHOS INJ 4 MG/ML VIAL ONE; -FENTANYL CITRATE/PF 100MCG/2 ML INJ ONE; -GLYCOPYRROLATE INJ 0.2 MG/ML VIAL ONE; -KETOROLAC TROMETHAMINE 30 MG/ML VIAL ONE; -LIDOCAINE HCL 2% LOCAL INJ 5 ML SDV VIAL INJ ONE; -MIDAZOLAM HCL 2 MG/2 ML VIAL ONE; -ONDANSETRON HCL INJ 2MG/ML 2ML 2 MG/ML VIAL ONE; -PROPOFOL IV EMULSION 10 MG/ML 20 ML VIAL ONE; -SEVOFLURANE INHAL SOLN 250 ML PEN BTL ONE
== END ==
LOC: MRI 10:04
PROVIDERS: ATTEND Family Medicine
DX: S56.911A Strain of unspecified muscles, fascia and tendons at forearm level, right arm, initial encounter (principal); M77.01 Medial epicondylitis, right elbow; Z04.2 Encounter for examination and observation following work accident